=== PATIENT | female | born 1990 ===

== ENCOUNTER 2016-12-07 08:11 | Emergency (ER) | payer SELFPAY ==
[2016-12-07] MEDS ORDERED: Sodium Chloride 0.9% 1,000 ML IV STA (08:42)
[2016-12-07] MEDS ORDERED: Sodium Chloride 0.9% 1,000 ML ONE (08:56)
[2016-12-07 09:20] LABS: BASO % 0.5 % (0.0-2.0); EOS # 0.3 K/uL (0.0-0.7); EOS % 3.4 % (0.0-4.0); HEMATOCRIT 36.6 % (34.0-47.0); LYMPH # 1.6 K/uL (1.0-4.3); LYMPH % 19.5 % (20.0-40.0); MEAN CELL VOLUME 84.4 fL (81.0-99.0); MEAN CORPUSCULAR HEMOGLOBIN 27.2 pg (27.0-31.0); MEAN CORPUSCULAR HGB CONC 32.2 g/dL (33.0-37.0); MEAN PLATELET VOLUME 8.5 fL (7.2-11.7); MONO # 0.5 K/uL (0.0-0.8); MONO % 6.3 % (0.0-10.0); WHITE BLOOD COUNT 8.4 K/uL (4.8-10.8)
[2016-12-07 09:21] LABS: URINE BILIRUBIN NEGATIVE (NEGATIVE); URINE COLOR Yellow (YELLOW); URINE GLUCOSE (UA) NORMAL (Normal); URINE KETONE NEGATIVE (NEGATIVE); URINE LEUKOCYTE ESTERASE TRACE Leu/uL (Negative); URINE PROTEIN NEGATIVE (NEGATIVE); URINE UROBILINOGEN NORMAL mg/dL (0.2-1.0); WBC URINE 3 /hpf (0-5)
[2016-12-07 09:29] LABS: CHLORIDE 98 mmol/L (98-107); POTASSIUM 4.1 mmol/L (3.6-5.2); SODIUM 139 mmol/L (132-148)
[2016-12-07 09:30] LABS: RBC URINE 6 /hpf (0-3); URINE BLOOD 2+ (NEGATIVE)
[2016-12-07 09:31] LABS: BILIRUBIN,TOTAL 0.3 mg/dL (0.2-1.3); CARBON DIOXIDE 25 mmol/L (22-30); GFR AFRICAN-AMERICAN > 60
[2016-12-07 09:32] LABS: ALB/GLOB RATIO 1.2 (1.0-2.1); ALKALINE PHOSPHATASE 72 U/L (38-126); ALT/SGPT 15 U/L (9-52); AST/SGOT 21 U/L (14-36); BLOOD UREA NITROGEN 15 mg/dL (7-17); CALCIUM 9.3 mg/dl (8.6-10.4); GLUCOSE,RANDOM 89 mg/dL (65-105); TOTAL PROTEIN 8.1 g/dL (6.3-8.3)
--- NOTE | 2016-12-07 10:12 | C.PDOC ---
History Of Present Illness 26-year-old female, (4 weeks to date), presents to the emergency department with complaints of vaginal bleed that started at 07:00 this morning. Patient notes associated pelvic pain. States she had an at home test that was positive. Denies nausea/vomiting, diarrhea, fevers, chills, shortness of breath or chest pain. No other complaints at this time. Chief Complaint (Nursing): Abdominal Pain History Per: Patient History/Exam Limitations: no limitations Onset/Duration Of Symptoms: Hrs Current Symptoms Are (Timing): Still Present Past Medical History Reviewed: Historical Data, Nursing Documentation, Vital Signs Vital Signs: Last Vital Signs Temp 98.2 F 12/07/16 11:47 Pulse 96 H 12/07/16 11:47 Resp 17 12/07/16 11:47 BP 119/76 12/07/16 11:47 Pulse Ox 100 12/07/16 11:47 - Medical History PMH: Asthma Family History: States: No Known Family Hx - Social History Hx Alcohol Use: No Hx Substance Use: No - Immunization History Hx Tetanus Toxoid Vaccination: Yes Hx Influenza Vaccination: Yes Hx Pneumococcal Vaccination: Yes Review Of Systems Except As Marked, All Systems Reviewed And Found Negative. Constitutional: Negative for: Fever, Chills Gastrointestinal: Negative for: Nausea, Vomiting Genitourinary: Positive for: Vaginal Bleeding, Pelvic Pain Musculoskeletal: Negative for: Back Pain Skin: Negative for: Rash Neurological: Negative for: Weakness, Numbness, Headache, Dizziness Physical Exam - Physical Exam Appears: Non-toxic, No Acute Distress Skin: Warm, Dry, No Rash Head: Atraumatic, Normacephalic Eye(s): bilateral: Normal Inspection, PERRL Nose: Normal Oral Mucosa: Moist Lips: Normal Appearing Neck: Normal ROM Chest: Symmetrical Cardiovascular: Rhythm Regular Respiratory: Normal Breath Sounds, No Accessory Muscle Use Gastrointestinal/Abdominal: Soft, Tenderness (mild, suprapubic), No Guarding, No Rebound Pelvic: Normal External Exam, Vaginal Bleeding, No Cervical Motion Tenderness, No Cervix Open (closed), No Adnexal Tenderness, Tender Uterus Extremity: Normal ROM Neurological/Psych: Oriented x3, Normal Speech ED Course And Treatment - Laboratory Results Result Diagrams: 12/07/16 09:13 12/07/16 09:13 O2 Sat by Pulse Oximetry: 99 - CT Scan/US pelvic US Other Rad Studies (CT/US): Read By Radiologist, Radiology Report Reviewed CT/US Interpretation: Accession No. : [id number]. Patient Name / ID : CATRINA Black / [id number]. Exam Date : 12/07/2016 10:09:45 ( Approved ). Study Comment : Sex / Age : F / 26Y. Creator : Jairon Lee. Dictator : Jairon Lee. Research Technician : Pathology Laboratory Technologist : Jairon Lee. Approver2 : Report Date : 12/07/2016 11:21:26. My Comment : . HISTORY: pelvic, bleeding. COMPARISON: None available. TECHNIQUE: Transabdominal and endovaginal ultrasound examination of the pelvis was obtained. The transvaginal study was performed for better assessment of the endometrium and deep structures. FINDINGS: UTERUS: Measures 8.4 x 3.3 x 4 cm. Normal in size and appearance. There is subserosal fundal fibroid measures 1.3 x 1 x 1.5 centimeter. ENDOMETRIUM: Measures 6.2 mm in diameter. There is no evidence of intrauterine . CERVIX: No cervical abnormality identified. RIGHT OVARY: Measures 2.7 x 1.8 x 2.4 cm. No solid mass. Normal flow. LEFT OVARY: Measures 2.7 x 1 x 2.6 cm. No solid mass. Normal flow. FREE FLUID: No significant free fluid noted. OTHER FINDINGS: None. IMPRESSION: No ultrasound evidence of intrauterine . Correlation with beta HCG level and if indicated close follow-up reassessment may be obtained. Subserosal fundal fibroid measures 1.5 centimeter. Otherwise unremarkable study. Progress Note: Blood work and urinalysis ordered. Patients urine preg is negative in ED. Pending ultrasound. Patient with early , vaginal bleeding noticed, cervical oz is closed, small fibroid seen on US. Patient was instructed to return to ED in 2 days to repeat beta HCG. Disposition - Disposition Disposition: HOME/ ROUTINE Disposition Time: 12:49 Condition: STABLE Additional Instructions: Follow up with your OBGYN. Return to ED in 2 days to repeat hormone level. Return to Ed immediately if feel worse. Instructions: First Trimester Vaginal Bleed (ED), Uterine Fibroids (ED) Print Language: ICELANDIC - Clinical Impression Clinical Impression: Antepartum hemorrhage, Uterine leiomyoma - Scribe Statement The provider has reviewed the documentation as recorded by the Rico Florez All medical record entries made by the Rico were at my direction and personally dictated by me. I have reviewed the chart and agree that the record accurately reflects my personal performance of the history, physical exam, medical decision making, and the department course for this patient. I have also personally directed, reviewed, and agree with the discharge instructions and disposition.
--- NOTE | 2016-12-07 11:22 | US ---
HISTORY: pelvic, bleeding COMPARISON: None available. TECHNIQUE: Transabdominal and endovaginal ultrasound examination of the pelvis was obtained. The transvaginal study was performed for better assessment of the endometrium and deep structures. FINDINGS: UTERUS: Measures 8.4 x 3.3 x 4 cm. Normal in size and appearance. There is subserosal fundal fibroid measures 1.3 x 1 x 1.5 centimeter ENDOMETRIUM: Measures 6.2 mm in diameter. There is no evidence of intrauterine . CERVIX: No cervical abnormality identified. RIGHT OVARY: Measures 2.7 x 1.8 x 2.4 cm. No solid mass. Normal flow. LEFT OVARY: Measures 2.7 x 1 x 2.6 cm. No solid mass. Normal flow. FREE FLUID: No significant free fluid noted. OTHER FINDINGS: None. IMPRESSION: No ultrasound evidence of intrauterine . Correlation with beta HCG level and if indicated close follow-up reassessment may be obtained. Subserosal fundal fibroid measures 1.5 centimeter. Otherwise unremarkable study.
[2016-12-07 12:49] VITALS: O2SAT 99
[2016-12-07 13:04] VITALS: BP 105/71; PULSE 106; RESP 19; TEMP 98
== END 2016-12-07 13:04 | disposition home or self-care (01) ==
LOC: C.ER 08:11
DX: O46.8X1 Other antepartum hemorrhage, first trimester (principal); Z3A.01 Less than 8 weeks gestation of pregnancy
CPT/HCPCS: 76830; 76856; 80053; 81001; 84702; 84703; 85025; 86850; 86900; 99285; J7040

== ENCOUNTER 2016-12-10 08:11 | Emergency (ER) | payer SELFPAY ==
[2016-12-10 08:18] VITALS: RESP 16
--- NOTE | 2016-12-10 11:40 | C.PDOC ---
Time Seen by Provider: 12/10/16 08:34 Chief Complaint (Nursing): Medical Clearance Past Medical History Vital Signs: Last Vital Signs Temp 97.5 F L 12/10/16 08:17 Pulse 95 H 12/10/16 08:17 Resp 16 12/10/16 08:17 BP 125/87 12/10/16 08:17 Pulse Ox 98 12/10/16 08:17 - Medical History PMH: Asthma - Social History Hx Alcohol Use: No Hx Substance Use: No - Immunization History Hx Tetanus Toxoid Vaccination: Yes Hx Influenza Vaccination: Yes Hx Pneumococcal Vaccination: Yes ED Course And Treatment O2 Sat by Pulse Oximetry: 98
--- NOTE | 2016-12-10 11:55 | C.PDOC ---
History Of Present Illness 26 y/o female presents to ED who was evaluated in ER a few days ago with (+) home test, no sonogram, presenting with lower abdominal pain and vaginal bleeding. On 12/07/16, pt had beta of 11 with no sonogram evidence of . Patient was instructed to return to the ER 2 days later for repeat beta. Patient presents today with c/o light vaginal bleeding, no abdominal pain. Denies any other complaints. Time Seen by Provider: 12/10/16 08:34 Chief Complaint (Nursing): Medical Clearance History Per: Patient History/Exam Limitations: no limitations Onset/Duration Of Symptoms: Days Current Symptoms Are (Timing): Better Pain Scale Rating Of: 0 Recent travel outside of the [place]: No Past Medical History Reviewed: Historical Data, Nursing Documentation, Vital Signs Vital Signs: Last Vital Signs Temp 98.4 F 12/10/16 12:03 Pulse 87 12/10/16 12:03 Resp 16 12/10/16 12:03 BP 114/78 12/10/16 12:03 Pulse Ox 98 12/10/16 12:05 - Medical History PMH: Asthma Family History: States: Unknown Family Hx - Social History Hx Alcohol Use: No Hx Substance Use: No - Immunization History Hx Tetanus Toxoid Vaccination: Yes Hx Influenza Vaccination: Yes Hx Pneumococcal Vaccination: Yes Review Of Systems Except As Marked, All Systems Reviewed And Found Negative. Constitutional: Negative for: Fever, Chills Respiratory: Negative for: Cough Gastrointestinal: Negative for: Vomiting, Abdominal Pain, Diarrhea Genitourinary: Positive for: Vaginal Bleeding (mild) Skin: Negative for: Rash Physical Exam - Physical Exam Appears: Non-toxic, No Acute Distress Skin: Normal Color, Warm, Dry Head: Atraumatic, Normacephalic Oral Mucosa: Moist Chest: Symmetrical Cardiovascular: Rhythm Regular Respiratory: Normal Breath Sounds, No Rales, No Rhonchi, No Wheezing Gastrointestinal/Abdominal: Soft, No Tenderness, No Guarding, No Rebound Back: No CVA Tenderness Extremity: Normal ROM, Capillary Refill (< 2 sec. ) Neurological/Psych: Oriented x3, Normal Speech, Normal Cognition ED Course And Treatment O2 Sat by Pulse Oximetry: 98 (RA) Pulse Ox Interpretation: Normal Medical Decision Making Medical Decision Making: Beta quant < 2.39 On reevaluation, patient is resting comfortably, in no acute distress. Advised follow up with [facility] and clinic. Disposition Counseled Patient/Family Regarding: Diagnosis, Need For Followup - Disposition Referrals: [facility] [Outside] [facility] [Outside] Disposition: HOME/ ROUTINE Disposition Time: 11:54 Condition: STABLE Additional Instructions: Follow up with full fashioned garment knitter in next 1=2 weeks. Return to ER for any worsening symptoms. Instructions: Spontaneous Miscarriage (ED) Forms: Gen Discharge Inst Panamanian Print Language: KYRGYZ - Clinical Impression Clinical Impression: Complete - PA / RESIDENCE SUPERVISOR / Resident Statement MD/DO has reviewed & agrees with the documentation as recorded. - Scribe Statement The provider has reviewed the documentation as recorded by the Scribsalinas Hanks All medical record entries made by the Rico were at my direction and personally dictated by me. I have reviewed the chart and agree that the record accurately reflects my personal performance of the history, physical exam, medical decision making, and the department course for this patient. I have also personally directed, reviewed, and agree with the discharge instructions and disposition.
[2016-12-10 12:03] VITALS: BP 114/78; PULSE 87; TEMP 98.4
[2016-12-10 12:05] VITALS: O2SAT 98
== END 2016-12-10 12:03 | disposition home or self-care (01) ==
LOC: C.ER 08:11
DX: O03.9 Complete or unspecified spontaneous abortion without complication (principal)